=== PATIENT | female | born 1995 | race Hispanic/Latino ===

== ENCOUNTER 2022-08-13 19:27 | Emergency (ER) | payer OTHER, SELFPAY ==
[2022-08-13] MEDS ORDERED: Lidocaine 1% (PF) 30 ML VIAL ONE ×2 (20:17→23:03)
[2022-08-13] MEDS ORDERED: Fentanyl 100 MCG/2 ML VIAL ONE ×2 (20:17→21:47)
[2022-08-13] MEDS ORDERED: Boostrix 0.5 ML (Tdap) VIAL (>/=7 yrs of age) ONE (20:18)
== END 2022-08-14 00:10 | disposition home or self-care (01) ==
LOC: CSHERS 19:27
DX: S81.011A Laceration without foreign body, right knee, initial encounter (principal); S39.012A Strain of muscle, fascia and tendon of lower back, initial encounter; M25.512 Pain in left shoulder; V89.2XXA Person injured in unspecified motor-vehicle accident, traffic, initial encounter; Y92.410 Unspecified street and highway as the place of occurrence of the external cause
CPT/HCPCS: 12004; 71045; 72131; 90471; 90715; 96374; 96376; J2001; J3010